=== PATIENT | male | born 1985 | race Caucasian/White ===

== ENCOUNTER 2018-04-19 12:18 | Emergency (ER) | payer SELFPAY ==
[2018-04-19 12:55] VITALS: BP 147/92; PULSE 97; RESP 16; TEMP 98.1; O2SAT 97
== END 2018-04-19 13:28 | disposition home or self-care (01) | DRG 159 ==
LOC: ED 12:18
DX: K04.7 Periapical abscess without sinus (principal)
CPT/HCPCS: 99282